=== PATIENT | male | born 1980 | race Caucasian/White ===

== ENCOUNTER 2016-10-24 10:13 | Emergency (ER) | payer BC ==
--- NOTE | 2016-10-24 11:29 | DIAGNOSTIC IMAGING REPORT ---
PROCEDURE: XR FOOT 3 VIEWS - RIGHT INDICATION: TRAUMA/INJURY TECHNIQUE: Three views. COMPARISON: None. FINDINGS: Osseous structures and joint spaces are normal. IMPRESSION: 1. Normal right foot.
--- NOTE | 2016-10-24 11:29 | DIAGNOSTIC IMAGING REPORT ---
PROCEDURE: XR ANKLE 3 OR 4 VIEWS - RIGHT INDICATION: TRAUMA/INJURY TECHNIQUE: Four views. COMPARISON: None. FINDINGS: Mild soft tissue swelling over the lateral malleolus. Osseous structures and joint spaces are normal. IMPRESSION: 1. Mild soft tissue swelling. 2. Otherwise negative right ankle.
--- NOTE | 2016-10-24 12:17 | ED CLINICAL REPORT ---
Clinical Report - Physicians/Mid Levels [facility] [address] [place] [address] 10/24/2016 10:18 Patient: BRADFORD GOODMAN Time Seen: 11:02. Arrived- By private vehicle. Historian- patient. HISTORY OF PRESENT ILLNESS Chief Complaint: Injury to the right ankle. The injury happened yesterday. (basketball court). The patient sustained an inversion injury playing basketball. Patient is experiencing moderate pain. No other injury. REVIEW OF SYSTEMS The patient complains of pain on weight bearing. He has had new onset of swelling of the right ankle (moderate). He has had new onset of pain-related weakness of the right ankle (moderate) and right foot (moderate). All systems otherwise negative, except as recorded above. PAST HISTORY Tetanus immunization status is unknown. Problems: no known problems. Additional Surgeries: Right knee reconstruction. Medications: None. Allergies: No Known Drug Allergy. SOCIAL HISTORY Never smoker. Occasional alcohol use. No drug use. FAMILY HISTORY No significant family medical history. ADDITIONAL NOTES The nursing notes have been reviewed. PHYSICAL EXAM Vital Signs: 10/24/2016 10:25 BP: 136/73. HR: 71. RR: 18. O2 saturation: 100%. Temp: 98.6 F. Pain level now: 6/10. Have been reviewed. Appearance: Alert. Head: Head atraumatic. Eyes: Pupils equal, round and reactive to light. ENT: Pharynx normal. Neck: Neck supple. CVS: Normal heart rate and rhythm. Heart sounds normal. Respiratory: No respiratory distress. Breath sounds normal. Abdomen: No visible injury. Soft and nontender. Bowel sounds normal. No organomegaly. No mass. Back: Normal inspection. ROM normal. Skin: Skin warm and dry. Extremities: Right lateral ankle: moderate tenderness and swelling. Ligamentous laxity present, as evidenced by a positive inversion stress test. Neurovascular intact distally. Gait: Limping gait. Neuro: No motor deficit. No sensory deficit. LABS, X-RAYS, AND EKG X-Rays: Right foot negative. Rt Ankle X-ray: (IMPRESSION: 1. Mild soft tissue swelling. 2. Otherwise negative right ankle.). The X-rays were interpreted by the radiologist and contemporaneously by me. PROGRESS AND PROCEDURES Patient/family counseled. Disposition: Discharged. Condition: stable. CLINICAL IMPRESSION Multiple superficial abrasions to the right ankle. Sprain of the right ankle. INSTRUCTIONS Apply ice for 20 minutes four times a day until better. Don't apply ice directly to skin and don't use while asleep. Use crutches until released. Wear air splint until released. Elevate affected areas above chest level. Warnings: COMPLICATIONS: Complications from this condition include: possible infection and possible injury to a ligament. Future problems may include infection, loss of function and pain. It is important to follow up with a physician for further evaluation and treatment. TETANUS: You were given a tetanus shot during your visit. Make a note for future reference. GENERAL WARNINGS: Return or contact your physician immediately if your condition worsens or changes unexpectedly, if not improving as expected, or if other problems arise. OTC Medications: Motrin (available over the counter): take according to label instructions. Understanding of the discharge instructions verbalized by patient and family. [facility] [address] [facility] [address] Follow up in five days. Call for the next available appointment. (Electronically signed by Vicente Collado MD 10/24/2016 13:04)
--- NOTE | 2016-10-24 12:17 | ED NURSING NOTES ---
Clinical Report - Nurses [facility] [address] [place] [address] 10/24/2016 10:18 Patient: BRADFORD GOODMAN TRIAGE Triage time 1025. Acuity: LEVEL 4. Chief Complaint: INJURY TO RIGHT ANKLE. PONCHO COMA SCORE: [place] Coma Scale: 15- eyes open spontaneously (4); best verbal response- oriented x 4 (5); best motor response- obeys commands (6). --10:31 Joyce Leon R.N. 10:25 10/24/16. BP: 136/73. HR: 71 (regular). RR: 18 (unlabored). O2 saturation: 100% on room air. Temp: 98.6 F (oral). Pain level now: 11/05. --10:31 Joyce Leon R.N. Weight: 86.1 kg stated. Height/Length: 72 inches Per Patient. BMI: 25.8. --10:25 Joyce Leon R.N. Medications None. --10:30 Joyce Leon R.N. Allergies No Known Drug Allergy. --10:30 Joyce Leon R.N. Medication/allergy information source: the patient. --10:31 Joyce Leon R.N. History Arrived by private vehicle. Historian: patient. Accompanied by family. Primary physician ([facility]). ( pt c/o right ankle/foot pain after rolling it yesterday while playing basketball. pt states he heard a popping sound. Pt states he iced it all day yesterday and took Ibuprofen last night with little relief.). This occurred yesterday. Mechanism of injury: sustained a twisting injury. 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 SOCIAL HX: Never smoker. Alcohol use. No drug use. ABUSE ASSESSMENT: No report of abuse. FALL RISK ASSESSMENT: Fall risk assessment completed. No fall risk identified. NUTRITIONAL RISK ASSESSMENT: The nutritional risk assessment revealed no deficiencies. FUNCTIONAL ASSESSMENT: Functional assessment: no impairments noted. LEARNING NEEDS ASSESSMENT: The learning needs assessment revealed no barriers. SKIN INTEGRITY ASSESSMENT: Skin integrity risk assessment completed. No skin integrity risk identified. --10:31 Joyce Leon R.N. PROBLEMS: no known problems. ADDITIONAL SURGERIES: Right knee reconstruction. --10:31 Joyce Leon R.N. Interventions ID band on patient. To treatment room. --10:31 Joyce Leon R.N. PHYSICAL ASSESSMENT 10:30. To room via wheelchair. GENERAL / NEURO / PSYCH: Oriented X 4. Alert. Appears in no acute distress. EXTREMITIES: Pain with weight bearing. Right ankle: swelling. Limited ROM secondary to pain (lateral). Right foot: tenderness of the lateral aspect of the foot. SKIN: Skin intact. Skin is warm and dry. --11:20 Joyce Leon R.N. NURSING PROGRESS NOTES Two patient identifiers checked. Call light placed in reach. Side rails up x 1. Bed placed in lowest position. Brakes of bed on. Patient ready for evaluation. --10:31 Joyce Leon R.N. 12:33 10/24/2016 TDAP IM 0.5 mL given. (Lot#: [id number], expiration date: 10/06/2018, Bottom Liner: sanofi pasteur). Given in the left deltoid. Allergies verified and confirmed 5 rights. Vaccine information statement provided to the patient. --12:39 Joyce Leon R.N. 11:30 pt waiting for MD. --12:39 Joyce Leon R.N. Air lower extremity splint applied to right ankle by tech. --12:50 Franklyn Moise, Tech1. DISPOSITION / DISCHARGE Departure time: 1238. Condition at departure: unchanged. No learning barriers present. Discharge instructions provided and reviewed with the patient. Patient verbalized understanding. Written instructions provided in Maori. The patient was discharged by the physician. He was discharged home and accompanied by liner worker. He left the Emergency Department on crutches and via private vehicle. Practical Nurse driving. Medication list reviewed and validated with the patient. --12:46 Joyce Leon R.N. 12:38 10/24/16. BP: deferred. HR: deferred. RR: deferred. Temp: deferred. Pain level now deferred. --12:46 Joyce Leon R.N. 12:38 10/24/16. O2 saturation: deferred. --12:47 Joyce Leon R.N. Locked/Released at 10/24/2016 18:18 by Joyce Leon R.N.
--- NOTE | 2016-10-24 12:17 | ED CLINICAL REPORT ---
Clinical Report - Physicians/Mid Levels [facility] [address] [place] [address] 10/24/2016 10:18 Patient: BRADFORD GOODMAN Time Seen: 11:02. Arrived- By private vehicle. Historian- patient. HISTORY OF PRESENT ILLNESS Chief Complaint: Injury to the right ankle. The injury happened yesterday. (basketball court). The patient sustained an inversion injury playing basketball. Patient is experiencing moderate pain. No other injury. REVIEW OF SYSTEMS The patient complains of pain on weight bearing. He has had new onset of swelling of the right ankle (moderate). He has had new onset of pain-related weakness of the right ankle (moderate) and right foot (moderate). All systems otherwise negative, except as recorded above. PAST HISTORY Tetanus immunization status is unknown. Problems: no known problems. Additional Surgeries: Right knee reconstruction. Medications: None. Allergies: No Known Drug Allergy. SOCIAL HISTORY Never smoker. Occasional alcohol use. No drug use. FAMILY HISTORY No significant family medical history. ADDITIONAL NOTES The nursing notes have been reviewed. PHYSICAL EXAM Vital Signs: 10/24/2016 10:25 BP: 136/73. HR: 71. RR: 18. O2 saturation: 100%. Temp: 98.6 F. Pain level now: 6/10. Have been reviewed. Appearance: Alert. Head: Head atraumatic. Eyes: Pupils equal, round and reactive to light. ENT: Pharynx normal. Neck: Neck supple. CVS: Normal heart rate and rhythm. Heart sounds normal. Respiratory: No respiratory distress. Breath sounds normal. Abdomen: No visible injury. Soft and nontender. Bowel sounds normal. No organomegaly. No mass. Back: Normal inspection. ROM normal. Skin: Skin warm and dry. Extremities: Right lateral ankle: moderate tenderness and swelling. Ligamentous laxity present, as evidenced by a positive inversion stress test. Neurovascular intact distally. Gait: Limping gait. Neuro: No motor deficit. No sensory deficit. LABS, X-RAYS, AND EKG X-Rays: Right foot negative. Rt Ankle X-ray: (IMPRESSION: 1. Mild soft tissue swelling. 2. Otherwise negative right ankle.). The X-rays were interpreted by the radiologist and contemporaneously by me. PROGRESS AND PROCEDURES Patient/family counseled. Disposition: Discharged. Condition: stable. CLINICAL IMPRESSION Multiple superficial abrasions to the right ankle. Sprain of the right ankle. INSTRUCTIONS Apply ice for 20 minutes four times a day until better. Don't apply ice directly to skin and don't use while asleep. Use crutches until released. Wear air splint until released. Elevate affected areas above chest level. Warnings: COMPLICATIONS: Complications from this condition include: possible infection and possible injury to a ligament. Future problems may include infection, loss of function and pain. It is important to follow up with a physician for further evaluation and treatment. TETANUS: You were given a tetanus shot during your visit. Make a note for future reference. GENERAL WARNINGS: Return or contact your physician immediately if your condition worsens or changes unexpectedly, if not improving as expected, or if other problems arise. OTC Medications: Motrin (available over the counter): take according to label instructions. Understanding of the discharge instructions verbalized by patient and family. [facility] , [address] [facility] [address] Follow up in five days. Call for the next available appointment. (Electronically signed by Vicente Collado MD 10/24/2016 13:04)
--- NOTE | 2016-10-24 12:17 | ED ORDER SUMMARY ---
..... Patient: BRADFORD GOODMAN OrderSheet [facility] VisitID: [id number] [place] [address] 36y, M Registration Date/Time: 10/24/2016 ORDER SHEET Weight: 86.1 kg (stated) Allergies: No Known Drug Allergy GENERAL ORDERS: Ankle 3 or 4V Right Urgent (10:32 10/24/2016 HKone R.N. per protocol) (Ack 10:35 LNations ER Tech1) (11:21 LNations ER Tech1) Foot 3V Right Urgent (10:33 10/24/2016 HKone R.N. per protocol) (Ack 10:35 LNations ER Tech1) (11:21 LNations ER Tech1) Splint (LE) (Right) (Sugar [place]) (Air Splint) (12:14 10/24/2016 Amarilis SUH) (12:40 LNations ER Tech1) Crutches (12:14 10/24/2016 Amarilis SUH) (12:40 LNations ER Tech1) MEDICATION ORDERS: Tdap IM 0.5 mL (NOW) (12:14 10/24/2016 Amarilis SUH) (Ack 12:25 HKone R.N.) (12:39 HKone R.N.) IV FLUIDS: ORDER SHEET NOTES: [Electronically signed by Vicente Collado MD (13:04 10/24/2016)] [Electronically signed by Joyce Leon R.N. (18:18 10/24/2016)] [Electronically locked/signed by Joyce Leon R.N. (18:18 10/24/2016)]
--- NOTE | 2016-10-24 12:17 | ED NURSING NOTES ---
Clinical Report - Nurses [facility] [address] [place] [address] 10/24/2016 10:18 Patient: BRADFORD GOODMAN TRIAGE Triage time 1025. Acuity: LEVEL 4. Chief Complaint: INJURY TO RIGHT ANKLE. PONCHO COMA SCORE: [place] Coma Scale: 15- eyes open spontaneously (4); best verbal response- oriented x 4 (5); best motor response- obeys commands (6). --10:31 Joyce Leon R.N. 10:25 10/24/16. BP: 136/73. HR: 71 (regular). RR: 18 (unlabored). O2 saturation: 100% on room air. Temp: 98.6 F (oral). Pain level now: 11/05. --10:31 Joyce Leon R.N. Weight: 86.1 kg stated. Height/Length: 72 inches Per Patient. BMI: 25.8. --10:25 Joyce Leon R.N. Medications None. --10:30 Joyce Leon R.N. Allergies No Known Drug Allergy. --10:30 Joyce Leon R.N. Medication/allergy information source: the patient. --10:31 Joyce Leon R.N. History Arrived by private vehicle. Historian: patient. Accompanied by family. Primary physician ([facility]). ( pt c/o right ankle/foot pain after rolling it yesterday while playing basketball. pt states he heard a popping sound. Pt states he iced it all day yesterday and took Ibuprofen last night with little relief.). This occurred yesterday. Mechanism of injury: sustained a twisting injury. 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 SOCIAL HX: Never smoker. Alcohol use. No drug use. ABUSE ASSESSMENT: No report of abuse. FALL RISK ASSESSMENT: Fall risk assessment completed. No fall risk identified. NUTRITIONAL RISK ASSESSMENT: The nutritional risk assessment revealed no deficiencies. FUNCTIONAL ASSESSMENT: Functional assessment: no impairments noted. LEARNING NEEDS ASSESSMENT: The learning needs assessment revealed no barriers. SKIN INTEGRITY ASSESSMENT: Skin integrity risk assessment completed. No skin integrity risk identified. --10:31 Joyce Leon R.N. PROBLEMS: no known problems. ADDITIONAL SURGERIES: Right knee reconstruction. --10:31 Joyce Leon R.N. Interventions ID band on patient. To treatment room. --10:31 Joyce Leon R.N. PHYSICAL ASSESSMENT 10:30. To room via wheelchair. GENERAL / NEURO / PSYCH: Oriented X 4. Alert. Appears in no acute distress. EXTREMITIES: Pain with weight bearing. Right ankle: swelling. Limited ROM secondary to pain (lateral). Right foot: tenderness of the lateral aspect of the foot. SKIN: Skin intact. Skin is warm and dry. --11:20 Joyce Leon R.N. NURSING PROGRESS NOTES Two patient identifiers checked. Call light placed in reach. Side rails up x 1. Bed placed in lowest position. Brakes of bed on. Patient ready for evaluation. --10:31 Joyce Leon R.N. 12:33 10/24/2016 TDAP IM 0.5 mL given. (Lot#: [id number], expiration date: 10/06/2018, Plunger Machine Operator: sanofi pasteur). Given in the left deltoid. Allergies verified and confirmed 5 rights. Vaccine information statement provided to the patient. --12:39 Joyce Leon R.N. 11:30 pt waiting for MD. --12:39 Joyce Leon R.N. Air lower extremity splint applied to right ankle by tech. --12:50 Franklyn Moise, Tech1. DISPOSITION / DISCHARGE Departure time: 1238. Condition at departure: unchanged. No learning barriers present. Discharge instructions provided and reviewed with the patient. Patient verbalized understanding. Written instructions provided in Irish. The patient was discharged by the physician. He was discharged home and accompanied by health officer. He left the Emergency Department on crutches and via private vehicle. Mineral Wool Insulation Supervisor driving. Medication list reviewed and validated with the patient. --12:46 Joyce Leon R.N. 12:38 10/24/16. BP: deferred. HR: deferred. RR: deferred. Temp: deferred. Pain level now deferred. --12:46 Joyce Leon R.N. 12:38 10/24/16. O2 saturation: deferred. --12:47 Joyce Leon R.N. Locked/Released at 10/24/2016 18:18 by Joyce Leon R.N.
--- NOTE | 2016-10-24 12:17 | ED ORDER SUMMARY ---
..... Patient: BRADFORD GOODMAN OrderSheet [facility] VisitID: [id number] [place] [address] 36y, M Registration Date/Time: 10/24/2016 ORDER SHEET Weight: 86.1 kg (stated) Allergies: No Known Drug Allergy GENERAL ORDERS: Ankle 3 or 4V Right Urgent (10:32 10/24/2016 HKone R.N. per protocol) (Ack 10:35 LNations ER Tech1) (11:21 LNations ER Tech1) Foot 3V Right Urgent (10:33 10/24/2016 HKone R.N. per protocol) (Ack 10:35 LNations ER Tech1) (11:21 LNations ER Tech1) Splint (LE) (Right) ([place]) (Air Splint) (12:14 10/24/2016 Amarilis SUH) (12:40 LNations ER Tech1) Crutches (12:14 10/24/2016 Amarilis SUH) (12:40 LNations ER Tech1) MEDICATION ORDERS: Tdap IM 0.5 mL (NOW) (12:14 10/24/2016 Amarilis SUH) (Ack 12:25 HKone R.N.) (12:39 HKone R.N.) IV FLUIDS: ORDER SHEET NOTES: [Electronically signed by Vicente Collado MD (13:04 10/24/2016)] [Electronically signed by Joyce Leon R.N. (18:18 10/24/2016)] [Electronically locked/signed by Joyce Leon R.N. (18:18 10/24/2016)]
--- NOTE | 2016-10-24 18:18 | ED MAR SUMMARY ---
..... Medication Administration Record [facility] [address] [place] [address] Patient: BRADFORD GOODMAN Visit ID: [id number] 36y, M Weight: 86.1 kg Height/Length: 72 in BMI: 25.8 ALLERGIES: No Known Drug Allergy Given 12:33 10/24/2016 Joyce Leon R.N. Medication Administered: TDAP [IM], Dose: 0.5 mL IM. Medication Ordered: Tdap IM 0.5 mL (NOW).
--- NOTE | 2016-10-24 18:18 | ED MED RECONCILIATION SUMMARY ---
Patient: BRADFORD GOODMAN Medication Reconciliation Report [facility] VisitID: [id number] [place] [address] 36y, M Registration Date/Time: 10/24/2016 Weight: 86.1 kg Height/Length: 72 in. BMI: 25.8 ALLERGIES: No Known Drug Allergy The patient's Home Medications are listed below: NONE. The source(s) of the original Home Medication information: patient The following Medications were given to the patient in the Emergency Department: TDAP [IM] IM 0.5 mL, administered: 10/24/2016 12:33:00 PM The following Medications were prescribed to the patient: Motrin (available over the counter): take according to label instructions. -- Vicente Collado MD
--- NOTE | 2016-10-24 18:18 | ED MED RECONCILIATION SUMMARY ---
Patient: BRADFORD GOODMAN Medication Reconciliation Report [facility] VisitID: [id number] [place] [address] 36y, M Registration Date/Time: 10/24/2016 Weight: 86.1 kg Height/Length: 72 in. BMI: 25.8 ALLERGIES: No Known Drug Allergy The patient's Home Medications are listed below: NONE. The source(s) of the original Home Medication information: patient The following Medications were given to the patient in the Emergency Department: TDAP [IM] IM 0.5 mL, administered: 10/24/2016 12:33:00 PM The following Medications were prescribed to the patient: Motrin (available over the counter): take according to label instructions. -- Vicente Collado MD
--- NOTE | 2016-10-24 18:18 | ED DISCHARGE INSTRUCTIONS ---
Patient: BRADFORD GOODMAN General Instructions [facility] VisitID: [id number] [address] [place] [address] 36y, M Registration Date/Time: 10/24/2016 Multiple superficial abrasions to the right ankle. Sprain of the right ankle. INSTRUCTIONS Apply ice for 20 minutes four times a day until better. Don't apply ice directly to skin and don't use while asleep. Use crutches until released. Wear air splint until released. Elevate affected areas above chest level. Warnings: COMPLICATIONS: Complications from this condition include: possible infection and possible injury to a ligament. Future problems may include infection, loss of function and pain. It is important to follow up with a physician for further evaluation and treatment. TETANUS: You were given a tetanus shot during your visit. Make a note for future reference. GENERAL WARNINGS: Return or contact your physician immediately if your condition worsens or changes unexpectedly, if not improving as expected, or if other problems arise. OTC Medications: Motrin (available over the counter): take according to label instructions. Understanding of the discharge instructions verbalized by patient and family. [facility] with: [facility], , [address], [place], [id number] Follow up in five days. Call for the next available appointment. ADDITIONAL INFORMATION Abrasions Abrasions are skin scrapes. Their treatment depends on how large and deep the abrasion is. Home Care: If you were given a bandage, change it once a day. If your bandage sticks to the wound, soak it in warm water until it loosens. Wash the area with soap and water to remove all the cream/ointment. You may do this in a sink, under a tub faucet or shower. Rinse off the soap and pat dry with a clean towel. Reapply cream/ointment according to your doctor's instructions. This will prevent infection and help prevent the bandage from sticking. Cover the wound with a fresh non-stick bandage (Telfa). Repeat steps 1 to 4 daily, or as directed by your doctor. If the bandage becomes wet or dirty, change it as soon as possible. You may use acetaminophen (Tylenol) or ibuprofen (Motrin, Advil) to control pain, unless another pain medicine was prescribed. [ NOTE : If you have chronic liver or kidney disease or ever had a stomach ulcer or GI bleeding, talk with your doctor before using these medicines.] Do not use ibuprofen in children under six months of age. Follow Up with your physician or this facility as directed by our staff. Most skin wounds heal within ten days. However, an infection may occur despite proper treatment. Therefore, look for the early signs of infection listed below. Get Prompt Medical Attention if any of the following occur: Increasing pain in the wound Increasing redness or swelling Pus coming from the wound Fever of 100.4F (38C) or higher, or as directed by your healthcare provider Sprain, Ankle,With X-Ray A sprain is an injury to the ligaments or capsule that holds a joint together. There are no broken bones. Most sprains take from four to six weeks to heal. If the ligament is completely torn (severe sprain), it can take several months to recover. Mild to moderate sprains may be treated with an elastic wrap or an in-shoe splint to provide support and prevent re-injury. A mild sprain may not require any additional support. A severe sprain may require surgery to repair. Home care The following guidelines will help you care for your injury at home: Stay off the injured leg as much as possible until you can walk on it without pain. If you have a lot of pain with walking, crutches or a walker may be prescribed. (These can be rented or purchased at many pharmacies and surgical or orthopedic supply stores). Follow your doctor's advice regarding when to begin bearing weight on that leg. Keep your leg elevated to reduce pain and swelling. When sleeping, place a pillow under the injured leg. When sitting, support the injured leg so it is level with your waist. This is very important during the first 48 hours. Apply an ice pack (ice cubes in a plastic bag, wrapped in a towel) over the injured area for 20 minutes every 12 hours the first day. You can place the ice pack directly over the splint/cast. If you were given a boot, open it to apply the ice pack. Continue with ice packs 34 times a day for the next two days, then as needed for the relief of pain and swelling. You may use acetaminophen or ibuprofen to control pain, unless another pain medicine was prescribed. If you have chronic liver or kidney disease or ever had a stomach ulcer or GI bleeding, talk with your doctor before using these medicines. You may return to sports after healing, when you can run without pain. A sprained ankle is at risk for re-injury during the first six weeks. During that time, protect your ankle with an in-shoe splint that prevents tilting of your ankle from side to side. This is very important if you do active work or play sports during that time. Follow-up care Any X-rays you had today dont show any broken bones, breaks, or fractures. Sometimes fractures dont show up on the first X-ray. Bruises and sprains can sometimes hurt as much as a fracture. These injuries can take time to heal completely. If your symptoms dont improve or they get worse, talk with your doctor. You may need a repeat X-ray. When to seek medical care Get prompt medical attention if any of the following occur: The plaster cast or splint gets wet or soft The fiberglass cast or splint gets wet and does not dry for 24 hours Pain or swelling increases, or redness appears Toes become cold, blue, numb or tingly Re-injure your ankle Crutch Walking Crutch Adjustment Make sure the crutches you use are adjusted to fit you. When you stand, there should be room to fit 2-3 fingers between the top of the crutch and your armpit. Your elbow should be slightly bent when holding the hand density control puncher. Crutch Walking: Place the crutches forward 12" in front of and 6" to the side of your feet. Lean your weight forward as you push down on the handgrips. Your weight should be on your hands and yourstrong leg, not your armpits . Let your body swing through, landing on the strong leg. Advance the crutches forward again. The crutch and the injured leg should move together. Going Up Steps: ("Up with the good") With both crutches on the same step as your feet, push down on the handgrips. Balancing with very light pressure on the weak leg, let your hands support your weight as you raise your strong leg onto the next higher step. Transfer all your weight to your strong leg (still bent) as you move the crutches up to the next step alongside the strong leg. With your weight evenly balanced on the two crutches and your strong leg, straighten your strong knee as you raise the weak leg up to the next step. Going Down Steps: ("Down with the bad") With both crutches on the same step as your feet, push down on the handgrips. With your weight evenly balanced on the two crutches and your strong leg, bend your strong knee as you lower the weak leg down to the next step. Let your strong leg support you (still bent) as you move the crutches down alongside the weak leg. Transfer your weight to your hands, balancing with very light pressure on the weak leg as you lower your strong leg alongside your weak leg. Aircast Traditional splints and casts for the foot and ankle protect the injury by preventing movement at the joints. However, many injuries heal better and faster if the injured joint can be moved, while protected at the same time. This is the reason for using an Aircast. There are two common type of AirCasts: 1) Air-Stirrup ankle splint This is often used to treat ankle sprains. It contains padded air cells in a plastic frame that fits into your shoe. This allows you to walk while preventing the ankle joint from rolling in or out causing re-injury. Ankle sprains can take 4-6 weeks to heal. Persons with severe injuries or over age 60 may require more time to heal. During that time, you are prone to re-injury by suddenly twisting your ankle again while the ligaments are still weak. When treating a sprain, the Air-Stirrup splint should be worn whenever walking for at least four weeks, or as long as you continue to have ankle pain. You should continue to wear it at least 6 weeks whenever running, playing sports or any activity where there is increased risk of re-injury. Talk to your doctor for specific advice about the treatment of your condition. 2) SP-Walker boot This is a short boot that provides support and protection to the foot and ankle while allowing you to walk. It contains padded air cells that provide compression and help circulation. It is used for both foot and ankle injuries - both sprains and minor fractures. Talk to your doctor for specific advice about the treatment of your condition. Air-Stirrup and SP-Walker are trademarks of [employer]. For more information about their products, see www.[employer]. Diphtheria Toxoid Adsorbed, Pertussis Vaccine, Acellular (Adsorbed), Tetanus Toxoid, Adsorbed Suspension for injection What is this medicine? DIPHTHERIA and TETANUS TOXOIDS; PERTUSSIS VACCINE (dif THEER ee uh and TET n us TOK soids; per TUS iss vak SEEN) is used to prevent diphtheria, tetanus, and pertussis infections. How should I use this medicine? This vaccine is for injection into a muscle. It is given by a health assistant child care teacher. A copy of Vaccine Information Statements will be given before each vaccination. Read this sheet carefully each time. The sheet may change frequently. Talk to your roving weight gauger regarding the use of this vaccine in children. While the DTP vaccine may be given to children ages 6 weeks to 7 years and the Tdap vaccine may be given to children at least 10 years old, precautions do apply. What side effects may I notice from receiving this medicine? Side effects that you should report to your doctor or health assistant child care teacher as soon as possible: allergic reactions like skin rash, itching or hives, swelling of the face, lips, or tongue breathing problems fever of 103 degrees F or more flu-like symptoms inconsolable crying infection pain, tingling, numbness in the hands or feet seizures swelling of arm or leg that was injected unusually weak or tired Side effects that usually do not require immediate medical attention (report these side effects to your doctor or health assistant child care teacher if they continue or are bothersome): fussy, irritable loss of appetite fever of 102 degrees F or less pain, tenderness, redness, swelling, or a 'knot' at site where injected vomiting What may interact with this medicine? immune globulin medicines that suppress your immune function like adalimumab, anakinra, infliximab medicines to treat cancer medicines that treat or prevent blood clots like warfarin, enoxaparin, and dalteparin steroid medicines like prednisone or cortisone What if I miss a dose? It is important not to miss your dose. Call your doctor or health assistant child care teacher if you are unable to keep an appointment. Where should I keep my medicine? This drug is given in a hospital or clinic and will not be stored at home. What should I tell my health care provider before I take this medicine? They need to know if you have any of these conditions: blood disorders like hemophilia fever or infection immune system problems neurologic disease seizures an unusual or allergic reaction to vaccines, thimerosal, latex, other medicines, foods, dyes, or preservatives or trying to get breast-feeding What should I watch for while using this medicine? See your health care provider for all shots of this vaccine as directed. To have protection from infection, you must have 3 shots of this vaccine plus boosters as needed. Tell your doctor right away if you have any serious or unusual side effects after getting this vaccine. Ibuprofen Oral tablet What is this medicine? IBUPROFEN (eye BYOO proe fen) is a non-steroidal anti-inflammatory drug (NSAID). It is used for dental pain, fever, headaches or migraines, osteoarthritis, rheumatoid arthritis, or painful monthly periods. It can also relieve minor aches and pains caused by a cold, flu, or sore throat. How should I use this medicine? Take this medicine by mouth with a glass of water. Follow the directions on the prescription label. Take this medicine with food if your stomach gets upset. Try to not lie down for at least 10 minutes after you take the medicine. Take your medicine at regular intervals. Do not take your medicine more often than directed. A special MedGuide will be given to you by the pharmacist with each prescription and refill. Be sure to read this information carefully each time. Talk to your roving weight gauger regarding the use of this medicine in children. Special care may be needed. What side effects may I notice from receiving this medicine? Side effects that you should report to your doctor or health assistant child care teacher as soon as possible: allergic reactions like skin rash, itching or hives, swelling of the face, lips, or tongue black or bloody stools, blood in the urine or in vomit breathing problems changes in vision chest pain general ill feeling or flu-like symptoms nausea or vomiting redness, blistering, peeling or loosening of the skin, including inside the mouth slurred speech or weakness on one side of the body stomach pain unexplained weight gain or swelling unusually weak or tired yellowing of eyes or skin Side effects that usually do not require medical attention (report to your doctor or health assistant child care teacher if they continue or are bothersome): constipation or diarrhea dizziness gas or heartburn stomach upset What may interact with this medicine? Do not take this medicine with any of the following medications: cidofovir ketorolac methotrexate pemetrexed This medicine may also interact with the following medications: alcohol aspirin diuretics lithium other drugs for inflammation like prednisone warfarin What if I miss a dose? If you miss a dose, take it as soon as you can. If it is almost time for your next dose, take only that dose. Do not take double or extra doses. Where should I keep my medicine? Keep out of the reach of children. Store at room temperature between 15 and 30 degrees C (59 and 86 degrees F). Keep container tightly closed. Throw away any unused medicine after the expiration date. What should I tell my health care provider before I take this medicine? They need to know if you have any of these conditions: asthma cigarette smoker drink more than 3 alcohol containing drinks a day heart disease or circulation problems such as heart failure or leg edema (fluid retention) high blood pressure kidney disease liver disease stomach bleeding or ulcers an unusual or allergic reaction to ibuprofen, aspirin, other NSAIDS, other medicines, foods, dyes, or preservatives or trying to get breast-feeding What should I watch for while using this medicine? Tell your doctor or healthcare professional if your symptoms do not start to get better or if they get worse. This medicine does not prevent heart attack or stroke. In fact, this medicine may increase the chance of a heart attack or stroke. The chance may increase with longer use of this medicine and in people who have heart disease. If you take aspirin to prevent heart attack or stroke, talk with your doctor or health assistant child care teacher. Do not take other medicines that contain aspirin, ibuprofen, or naproxen with this medicine. Side effects such as stomach upset, nausea, or ulcers may be more likely to occur. Many medicines available without a prescription should not be taken with this medicine. This medicine can cause ulcers and bleeding in the stomach and intestines at any time during treatment. Ulcers and bleeding can happen without warning symptoms and can cause . To reduce your risk, do not smoke cigarettes or drink alcohol while you are taking this medicine. You may get drowsy or dizzy. Do not drive, use machinery, or do anything that needs mental alertness until you know how this medicine affects you. Do not stand or sit up quickly, especially if you are an older patient. This reduces the risk of dizzy or fainting spells. This medicine can cause you to bleed more easily. Try to avoid damage to your teeth and gums when you brush or floss your teeth. You have been given the following additional information: Abrasion Sprain, Ankle, With X-Ray Crutch Walking Aircast Splint And Boot Diphtheria Toxoid Adsorbed, Pertussis Vaccine, Acellular (Adsorbed), Tetanus Toxoid, Adsorbed Suspension for injection Ibuprofen Oral tablet (Electronically signed by Vicente Collado MD 10/24/2016 13:04)
--- NOTE | 2016-10-24 18:18 | ED MAR SUMMARY ---
..... Medication Administration [facility] [address] [place] [address] Patient: BRADFORD GOODMAN Visit ID: [id number] 36y, M Weight: 86.1 kg Height/Length: 72 in BMI: 25.8 ALLERGIES: No Known Drug Allergy Given 12:33 10/24/2016 Joyce Leon R.N. Medication Administered: TDAP [IM], Dose: 0.5 mL IM. Medication Ordered: Tdap IM 0.5 mL (NOW).
== END 2016-10-24 12:38 | disposition home or self-care (01) ==
LOC: ED SRH 10:13
DX: S93.401A Sprain of unspecified ligament of right ankle, initial encounter (principal); S90.511A Abrasion, right ankle, initial encounter; X50.3XXA Overexertion from repetitive movements, initial encounter; Y93.67 Activity, basketball; Y92.310 Basketball court as the place of occurrence of the external cause; Z23 Encounter for immunization